=== PATIENT | male | born 1970 | race American Indian/Alaskan Native ===

== ENCOUNTER 2019-09-11 12:28 | Day surgery (SDC) | payer OTHER ==
[~2019-09-11 12:28] MED LIST: SODIUM CHLORIDE 0.9% 1000 ML 1,000 ML IV SCH
--- NOTE | 2019-09-11 13:28 | Anesthesia Day of Surgery ---
Anesthesia Day of Surgery - Day of Surgery Patient Examined: Yes Patient H&P Reviewed: Yes Patient is NPO: Yes
--- NOTE | 2019-09-11 13:29 | Anesthesia Consultation ---
Anesthesia Consult and Med Hx Date of service: 09/11/19 - Airway Anesthetic Teeth Evaluation: Good (BRACES) ROM Head & Neck: Adequate Mental/Hyoid Distance: Adequate Mallampati Class: Class II Intubation Access Assessment: Probably Good - Pre-Operative Health Status ASA Pre-Surgery Classification: ASA3 Proposed Anesthetic Plan: MAC - Pulmonary Hx Sleep Apnea: Yes - Cardiovascular System Hx Hypertension: No (States he can climb two flights of stairs) - Gastrointestinal Hx Gastroesophageal Reflux Disease: Yes - Endocrine Hx Non-Insulin Dependent Diabetes: Yes (FBS 143) - Other Systems Hx Obesity: Yes
[2019-09-11] MEDS ORDERED: PROPOFOL 200 MG/20 ML VIAL IV ONE ×2 (14:17)
[2019-09-11] MEDS ORDERED: WATER FOR IRRIG STERILE 250 ML BOTTLE IR ONE (14:30)
[2019-09-11] MEDS ORDERED: LIDOCAINE MPF (2%) 20 MG/1 ML VIAL 5 ML ONE (14:30)
--- NOTE | 2019-09-11 15:05 | Procedure Note ---
Date of procedure: 09/11/19 Pre-op diagnosis: GERD/Colon Polyp Screening Post-op diagnosis: other (Moderate,Erosive Esophagitis/Gastritis/Colon Polyps (Cecum and Sigmoid)/Moderate,Proximal Colon Diverticuli/No Internal Hemorrhoids noted) Procedure: EGD with Biopsy and Colonoscopy with Biopsy Anesthesia: BABITA Surgeon: CHACORTA CALHOUN Estimated blood loss: minimal Pathology: list Specimen disposition: to lab Condition: stable Disposition: same day
--- NOTE | 2019-09-11 15:11 | Operative Report ---
PROCEDURE: Colonoscopy with cold biopsy. INDICATIONS: This is a 48-year-old slightly obese -[place] gentleman with an underlying history of diabetes mellitus type 2, who had an EGD done, which showed presence of moderate erosive esophagitis and gastritis. Colonoscopy was also done as part of colon polyp screening. DESCRIPTION OF PROCEDURE: Procedure was done after getting informed consent with MAC anesthesia. Initial rectal exam was done, was unremarkable. Instrument was passed through the rectum onto the cecum, which was identified with ileocecal valve and appendiceal orifice. Visualization was fair to good. There was a small polyp noted in the cecum about 8 mm in diameter, removed by cold biopsy. There was moderate diverticular disease also noted in the proximal colon and a few scattered diverticula noted in the transverse and the left colon. No additional polyp was noted in the transverse colon or the descending colon. In the sigmoid colon, there was another additional small solitary polyp noted that was removed by cold biopsy and the rectum appeared normal on the retroverted view. There was minimal bleeding from the polypectomy site and no complications associated with the procedure. ASSESSMENT: Colon polyp screening. Moderate proximal colon diverticula and a few scattered diverticula in the left colon, which was small. The diverticula in the proximal colon were medium sized and somewhat deep. There was a small cecal polyp and a solitary small sigmoid polyp, both removed by cold biopsy and no internal hemorrhoids. There was minimal bleeding from the biopsy sites. No complications associated with the procedure. PLAN: To treat the patient with fiber supplements, to place the patient on PPI because of the EGD findings of esophagitis, gastritis. Have the patient avoid aspirin and aspirin-related products for the next 4 days. Follow up in the office in 1-2 weeks' time. The procedure was done in the GI lab with assistance of the GI lab team, which included TONA Keita as well as Carlos agudelo and assistance of anesthesia. JOB# [id number] MALVIN/RICHARDSON
--- NOTE | 2019-09-11 15:17 | Operative Report ---
PROCEDURE: Esophagogastroduodenoscopy with biopsy. INDICATIONS: A 48-year-old slightly obese -[place] gentleman with an underlying history of diabetes mellitus, who has been having GERD symptoms. EGD was done to assess for any significant upper GI pathology. DESCRIPTION OF PROCEDURE: Procedure was done after getting informed consent with MAC anesthesia. Instrument was passed through the hypopharynx into the esophagus, which showed moderate erosive esophagitis. Stomach showed gastritis. The pylorus was patent. The duodenum in the first and the second portion appeared normal. No peptic ulcer disease was noted within the gastric or the duodenal lumen. Biopsy was done from the gastric antrum, gastric body and angular incisura to rule out for H. pylori and atrophic gastritis. Additional biopsy was done from the distal esophagus to assess for the severity of the erosive esophagitis. There was minimal bleeding associated with the procedure. No complications associated with the procedure. ASSESSMENT: Gastroesophageal reflux disease symptoms, moderate erosive esophagitis, gastritis. PLAN: To treat the patient with PPI, have the patient avoid aspirin and aspirin-related products for the next few days. To do a colonoscopy as part of colon polyp screening and have the patient follow up in the office in 1-2 weeks' time. Procedure was done in the GI lab with assistance of the GI lab team, which included TONA Keita and Carlos hinojosa and the assistance of anesthesia. JOB# [id number] MALVIN/RICHARDSON
[2019-09-11 15:42] VITALS: BP 113/75
--- NOTE | 2019-09-12 08:48 | Post Anesthesia Evaluation ---
- Post Anesthesia Evaluation Patient Participated: Yes Airway Patent: Yes Stable Respiratory Function: Yes Nausea/Vomiting: No Temp > 96.8F: Yes Pain Manageable: Yes Adequeate Hydration: Yes Anesthesia Complications: No Block Receding Appropriately: Not Applicable Patient on Ventilator: No
== END 2019-09-11 12:29 | disposition home or self-care (01) ==
LOC: GIO 12:28
DX: Z12.11 Encounter for screening for malignant neoplasm of colon (principal); K63.5 Polyp of colon; K63.89 Other specified diseases of intestine; K21.0 Gastro-esophageal reflux disease with esophagitis; K57.30 Diverticulosis of large intestine without perforation or abscess without bleeding; K29.70 Gastritis, unspecified, without bleeding; E11.9 Type 2 diabetes mellitus without complications; K31.89 Other diseases of stomach and duodenum; G47.30 Sleep apnea, unspecified; E66.9 Obesity, unspecified; Z79.84 Long term (current) use of oral hypoglycemic drugs; Z79.899 Other long term (current) drug therapy; Z68.37 Body mass index [BMI] 37.0-37.9, adult
CPT/HCPCS: 43239; 45380; 82962; 88305; 88342; J2704